=== PATIENT | male | born 1985 | race Caucasian/White ===

== ENCOUNTER 2018-07-05 07:45 | Emergency (ER) | payer BC ==
--- NOTE | 2018-07-05 08:16 | EDM.PDOC ---
ED HPI GENERAL MEDICAL PROBLEM - General Chief Complaint: Genitourinary Problem Stated Complaint: HAD A PROCEDURE AND IS IN EXTREME PAIN NOW Time Seen by Provider: 07/05/18 07:53 Source of Information: Reports: Patient History Limitations: Reports: No Limitations - History of Present Illness INITIAL COMMENTS - FREE TEXT/NARRATIVE: Had surgery for horseshoe kidney 7 weeks ago in [place]. Had stent taken out by Dr Ewing in [place] on Monday. Monday night he was fine and yesterday he started having more pain to the lower abdomen and across the lower back. He did tae his oxycontin last night and then vomited. No fever. Some burning with urination noted. States the pain was "brutal" last night. Wasn't able to sleep. No diarrhea with it. Has not had any noted blood in urine. Onset: Gradual Location: Reports: Abdomen, Back Lower Back Pain Score (Numeric/FACES): 7 - Related Data Allergies Allergy/AdvReac Type Severity Reaction Status Date / Time No Known Allergies Allergy Verified 07/05/18 07:53 Home Meds: Home Meds Levothyroxine [Synthroid] 50 mcg PO DAILY 07/05/18 [History] Lisinopril 10 mg PO DAILY 07/05/18 [History] Oxybutynin Chloride 5 mg PO TID PRN 07/05/18 [History] oxyCODONE 5 mg PO Q4H PRN 07/05/18 [History] Past Medical History Cardiovascular History: Reports: Hypertension Genitourinary History: Reports: Hydronephrosis Endocrine/Metabolic History: Reports: Hyperthyroidism - Past Surgical History Male Surgical History: Reports: Ureteral Stent, Other (See Below) Other Male Surgeries/Procedures: Kidney surgery Social & Family History - Family History Family Medical History: Noncontributory - Tobacco Use Smoking Status *Q: Never Smoker - Caffeine Use Caffeine Use: Reports: None - Recreational Drug Use Recreational Drug Use: No ED ROS GENERAL - Review of Systems Review Of Systems: See Below Constitutional: Denies: Fever, Chills HEENT: Reports: No Symptoms Respiratory: Reports: No Symptoms Cardiovascular: Reports: No Symptoms GI/Abdominal: Reports: Abdominal Pain (lower rght abdomen and lumbar back.) : Reports: Dysuria, Hematuria Musculoskeletal: Reports: Back Pain Neurological: Reports: No Symptoms ED EXAM, RENAL/ - Physical Exam Exam: See Below Exam Limited By: No Limitations General Appearance: Alert, WD/WN, Mild Distress Ears: Normal External Exam, Normal Canal Nose: Normal Inspection Throat/Mouth: Normal Inspection, Normal Oropharynx Head: Atraumatic, Normocephalic Neck: Normal Inspection, Supple, Non-Tender, Full Range of Motion Respiratory/Chest: No Respiratory Distress, Lungs Clear, Normal Breath Sounds Cardiovascular: Regular Rate, Rhythm GI/Abdominal: Normal Bowel Sounds, Soft, Tender (to the lower right quadrant.), Other (well healed surgical scars noted.) Back Exam: Normal Inspection, Full Range of Motion Extremities: Normal Inspection, No Pedal Edema, Normal Capillary Refill Neurological: Alert, Oriented Skin Exam: Warm, Dry, Intact Course - Vital Signs Last Recorded V/S: Last Vital Signs Temp 97.9 F 07/05/18 11:08 Pulse 84 07/05/18 11:08 Resp 18 07/05/18 11:08 BP 131/83 07/05/18 11:08 Pulse Ox 96 07/05/18 11:08 - Orders/Labs/Meds Orders: Active Orders 24 hr Category Date Time Status Abdomen Pelvis w wo Cont [CT] Stat Exams 07/05/18 09:19 Taken CULTURE URINE [RM] Stat Lab 07/05/18 08:30 Received Labs: Laboratory Tests 07/05/18 07/05/18 07/05/18 Range/Units 08:05 08:05 08:05 WBC 12.4 H (5.0-10.0) 10^3/uL RBC 5.14 (4.50-6.00) 10^6/uL Hgb 15.3 (14.0-18.0) g/dL Hct 44.9 (40.0-54.0) % MCV 87.4 (82.0-94.0) fL MCH 29.8 (27.0-32.0) pg MCHC 34.1 (33.0-38.0) g/dL RDW Coeff of Laith 12.7 (11.0-15.0) % Plt Count 248 (150-400) 10^3/uL Neut % (Auto) 82.1 (35-85) % Lymph % (Auto) 9.5 L (10-55) % [place] % (Auto) 8.2 (0-16) % Eos % (Auto) 0.1 (0-5) % Baso % (Auto) 0.1 (0-3) % Neut # (Auto) 10.19 H (1.80-7.00) 10^3/uL Lymph # (Auto) 1.18 (1.00-4.80) 10^3/uL [place] # (Auto) 1.02 H (0.00-0.80) 10^3/uL Eos # (Auto) 0.01 (0.00-0.45) 10^3/uL Baso # (Auto) 0.01 10^3/uL Sodium 143 (136-145) mEq/L Potassium 4.2 (3.5-5.0) mEq/L Chloride 104 (98-106) mEq/L Carbon Dioxide 29 (21-32) mmol/L BUN 17 (7-18) mg/dL Creatinine 1.4 H (0.7-1.3) mg/dL Est Cr Clr Drug Dosing 80.68 mL/min Estimated GFR (MDRD) 59 L (>=60) mL/min Glucose 123 H (75-99) mg/dL Calcium 9.7 (8.4-10.1) mg/dL Total Bilirubin 1.0 (0.0-1.0) mg/dL AST 19 (15-37) U/L ALT 44 (12-78) U/L Alkaline Phosphatase 91 (46-116) U/L C-Reactive Protein 2.0 H (0.2-0.8) mg/dL Total Protein 8.1 (6.4-8.2) g/dL Albumin 4.7 (3.4-5.0) g/dL Urine Color Yellow (YELLOW) Urine Appearance Clear (CLEAR) Urine pH 6.5 (4.5-8.0) Ur Specific [place] 1.025 H (1.003-1.020) Urine Protein Trace H (NEGATIVE) mg/dL Urine Glucose (UA) Negative (NEGATIVE) mg/dL Urine Ketones Negative (NEGATIVE) mg/dL Urine Occult Blood Moderate H (NEGATIVE) Urine Nitrite Positive H (NEGATIVE) Urine Bilirubin Negative (NEGATIVE) Urine Urobilinogen 0.2 (0.2-1.0) EU/dL Ur Leukocyte Esterase Negative (NEGATIVE) Urine RBC 20-30 H (0-5) /HPF Urine WBC Not seen (0-5) /HPF Ur Epithelial Cells Few H (NOT SEEN) /HPF Urine Mucus Few H (NOT SEEN) /HPF Meds: Medications Discontinued Medications Generic Name Dose Route Start Last Admin Trade Name Ming PRN Reason Stop Dose Admin Hydromorphone HCl 1 mg 07/05/18 09:22 07/05/18 11:31 Dilaudid IVPUSH 1 mg Q1H PRN Administration Abdominal Pain Iopamidol 200 ml 07/05/18 09:32 Isovue-250 (51%) IVPUSH 07/05/18 09:33 ONETIME ONE Iopamidol 200 ml 07/05/18 09:40 07/05/18 09:41 Isovue-250 (51%) IVPUSH 07/05/18 09:41 200 ml ONETIME ONE Administration - Re-Assessments/Exams Free Text/Narrative Re-Assessment/Exam: 07/05/[address] Ewing at [facility] who toke the stent out. He did recommend that A CT with contrast be done to evaluate the kidney. 07/05/[address] results [address] Dr. Bear. He does not have a recent CT post op to compare to. Will push the images to [place] where he had surgery 7 weeks ago. 07/05/18 [address] Victoriano No at [facility] ([phone]) and he did review the CT and feels that he needs to have the stent replaced and then at some time will need to go back to [place] for further testing and follow up. 1230- Discussed case with Dr. Cedeño nurse and he did agree to place the stent tomorrow and his office will contact the pt directly for time and instructions Reviewed the plan with the pt and he agrees to this. Is concerned that he vomited from the oxycontin that he was given and is wondering if there is anything else he can try while waiting for the stent placement. Will discharge on NOrco to try first and if he does try the oxycontin he should take it with food and not on an empty stomach. He still is on the bactrim from when the stent was taken out on Monday so will continue on them until the culture report is complete. Departure - Departure Time of Disposition: 12:51 Disposition: Home, Self-Care 01 Clinical Impression: Hydronephrosis Qualifiers: Hydronephrosis type: unspecified Qualified Code(s): N13.30 - Unspecified hydronephrosis - Discharge Information *PRESCRIPTION DRUG MONITORING PROGRAM REVIEWED*: Not Applicable *COPY OF PRESCRIPTION DRUG MONITORING REPORT IN PATIENT RANDY: Not Applicable Instructions: Hydronephrosis Referrals: PCP,None [Primary Care Provider] - Forms: ED Department Discharge Additional Instructions: [facility] will call you today to arrange for stent placement Contact Dr. Holguin office to arrange follow up with him as soon as possible Use norco 5/325mg 1-2 tablets for pain. If you take these do not use the oxycodone. Take pain meds with some food. push fluids today as tolerated. - My Orders Last 24 Hours: My Active Orders 07/05/18 08:30 CULTURE URINE [RM] Stat 07/05/18 09:19 Abdomen Pelvis w wo Cont [CT] Stat - Assessment/Plan Last 24 Hours: My Active Orders 07/05/18 08:30 CULTURE URINE [RM] Stat 07/05/18 09:19 Abdomen Pelvis w wo Cont [CT] Stat Plan: Will have stent placed tomorrow at [facility] with Dr. Cedeño. Please use this ER note as the preop clearance. Pt is stable for anesthesia. Labs are stable
[2018-07-05] MEDS: HYDROmorphone 1 MG/ML Syringe IVPUSH PRN ×2 (09:27→11:31)
[2018-07-05] MEDS ORDERED: Iopamidol 510 MG/ML 50 ML SDV IVPUSH ONE ×2 (09:32→09:40)
== END 2018-07-05 13:25 | disposition home or self-care (01) ==
LOC: CC.ED 07:45
DX: N13.2 Hydronephrosis with renal and ureteral calculous obstruction (principal); I10 Essential (primary) hypertension; Z79.899 Other long term (current) drug therapy
CPT/HCPCS: 36415; 74178; 80053; 81001; 85025; 86140; 87086; 96374; 96376; 99284-25; J1170; Q9966